=== PATIENT | female | born 1955 | race Caucasian/White ===

== ENCOUNTER 2019-01-10 09:38 | Day surgery (SDC) | payer OTHER ==
[~2019-01-10] VITALS: Ht 162.6 cm; Wt 86.7 kg
[~2019-01-10 09:38] MED LIST: ELIM TOP; HC30CR25 TOP
[2019-01-10] MEDS ORDERED: [UNRECOGNIZED DRUG - OTHER] (11:17)
[2019-01-10] MEDS ORDERED: LEVOTHYROXINE (11:17)
[2019-01-10 11:18] VITALS: BP 162/81; PULSE 70; RESP 18
[2019-01-10] MEDS ORDERED: CALCIUM (11:18)
[2019-01-10] MEDS ORDERED: OMEGA 3 (11:18)
[2019-01-10 11:19] VITALS: Ht 162.6 cm; Wt 86.7 kg
[2019-01-10] MEDS ORDERED: FENTAnyl 50 MCG/ML VIAL ONE (12:19)
[2019-01-10] MEDS ORDERED: MIDAZOLAM 1 MG/ML 2 ML INJ ONE ×2 (12:20)
[2019-01-10 12:25] VITALS: BP 154/88; PULSE 82; RESP 16
== END 2019-01-10 12:53 | disposition home or self-care (01) ==
LOC: GIL 09:38
PROVIDERS: ATTEND Internal Medicine Gastroenterology
DX: Z12.11 Encounter for screening for malignant neoplasm of colon (principal); K64.8 Other hemorrhoids
CPT/HCPCS: 45378; J2250; J3010